=== PATIENT | male | born 2005 | race Caucasian/White ===

== ENCOUNTER 2024-07-02 17:10 | Emergency (ER) | payer OTHER, SELFPAY ==
[2024-07-02 17:29] VITALS: BP 149/69; PULSE 69; RESP 18; TEMP 37.3; O2SAT 98; BMI 23.4
--- NOTE | 2024-07-02 18:17 | ED_ITS ---
HPI - Ear Problem General Chief complaint: Ear/Nose/Throat Problem Stated complaint: Possible ruptured left ear drum Time Seen by Provider: 07/02/24 17:17 History of Present Illness HPI Narrative: This 18-year-old male comes in reporting pain and some drainage from his left ear. He does not report any fever or upper respiratory symptoms. He states that there is been no trauma but he wonders if he might have ruptured his eardrum. I asked if he has around water and he states that he has been swimming a lot recently. Related Data Home Medications ?Medication ?Instructions ?Recorded ?Confirmed No Known Home Medications 07/02/24 07/02/24 Allergies Allergy/AdvReac Type Severity Reaction Status Date / Time No Known Drug Allergies Allergy Verified 07/02/24 17:31 Review of Systems Status of ROS: Reports: 10 or more systems reviewed and unremarkable except as noted in History and below Narrative: Constitutional: No fevers, no weight gain or loss. Eyes: No discharge. No vision changes. HENT: No congestion, no sore throat. Left ear pain with some drainage. Cardiovascular: No chest pain, no palpitations. Respiratory: No shortness of breath, no wheezes, no cough. Gastrointestinal: No abdominal pain, no vomiting, no diarrhea. Genitourinary: No dysuria, no hematuria. Musculoskeletal: Normal range of motion. Skin: No rashes, no pruritis. Neurological: No dizziness, weakness, sensory change, speech change. Endo/Heme/Allergies: No bruising or bleeding. No polydipsia. Pysch: no suicidality, no anxiety, no insomnia. All other systems reviewed and are negative. Exam Narrative: Exam Narrative: Constitutional: Well-developed, well-nourished, no acute distress. HEENT: Normocephalic, atraumatic. Right tympanic membrane appears normal. Left tympanic membrane is visualized but the ear canal is moist with purulence. He has tenderness when moving the external ear. Neck: Normal range of motion. Nontender. Supple. Heart: Intact distal pulses. Lungs: No chest discomfort. No wheezes, rhonchi, or rales. Abdomen: Nontender. Back: Normal range of motion. Extremities: Normal range of motion. No injury. Skin: Intact. No rash. Warm. No erythema or pallor. Neurologic: No altered sensation. No weakness. Alert and oriented. Psychiatric: No suicidality. No anxiety or depression. No insomnia. Nursing notes and vitals signs are reviewed. Const: Vital Signs, click to edit/add: Vital Signs - 24 hr 07/02/24 17:29 Temperature 99.1 F Pulse Rate [Right Pulse Oximeter] 69 Respiratory Rate 18 Blood Pressure [Ri ght Upper Arm] 149/69 H Pulse Oximetry 98 Oxygen Delivery Me thod Room Air Course Vital Signs Vital signs: Initial Vital Signs Temperature 99.1 F 07/02/24 17:29 Temperature Source Temporal Artery Scan 07/02/24 17:29 Pulse Rate 69 07/02/24 17:29 Pulse Rhythm Regular 07/02/24 17:29 Pulse Strength 3+ Normal 07/02/24 17:29 Respiratory Rate 18 07/02/24 17:29 Blood Pressure 149/69 H 07/02/24 17:29 Blood Pressure Mean 95 07/02/24 17:29 Blood Pressure Position Sitting 07/02/24 17:29 Pulse Oximetry 98 07/02/24 17:29 Oxygen Delivery Method Room Air 07/02/24 17:29 Vital Signs Temperature 99.1 F 07/02/24 17:29 Pulse Rate 69 07/02/24 17:29 Respiratory Rate 18 07/02/24 17:29 Blood Pressure 149/69 H 07/02/24 17:29 Pulse Oximetry 98 07/02/24 17:29 Oxygen Delivery Method Room Air 07/02/24 17:29 Temperature 99.1 F 07/02/24 17:29 Pulse Rate 69 07/02/24 17:29 Respiratory Rate 18 07/02/24 17:29 Blood Pressure 149/69 H 07/02/24 17:29 Pulse Oximetry 98 07/02/24 17:29 Oxygen Delivery Method Room Air 07/02/24 17:29 Medical Decision Making MDM Narrative Medical decision making narrative: This patient comes in with drainage from his left ear and has findings typical of otitis externa. He has been around water and doing lots of swimming lately. I was able to provide and [facility] prescription for Cortisporin otic and advised him regarding managing his ears when he has round lots of water. Discharge Plan Discharge Clinical Impression: Otitis externa Patient Disposition: Home, Self-Care Condition: Stable Additional Instructions: Take medicine as prescribed. Use an ear wick if needed to help deliver the medicine into the ear canal. Follow up with return if worsening. Prescriptions: No Action No Known Home Medications Follow Up/Referrals: Namita Sorensen MD [Primary Care Provider] - Stand Alone Forms: [employer] Info Instructions
== END 2024-07-02 18:31 | disposition home or self-care (01) ==
LOC: ED 18:29
PROVIDERS: Emergency Provider Emergency Medicine Emergency Medical Services; PCP Pediatrics
DX: H60.92 Unspecified otitis externa, left ear (principal)
CPT/HCPCS: 99283; 99284